=== PATIENT | female | born 1985 | race African-American/Black ===

== ENCOUNTER 2017-10-30 14:57 | Emergency (ER) | payer MEDICAID ==
[~2017-10-30] VITALS: Ht 165.1 cm; Wt 81.6 kg
[~2017-10-30 14:57] MED LIST: CANA100T PO; CHOL200029 PO; DOCU1CAP31 PO; GABA300C10 PO; GLIP10TA59 PO; HYDR12.56 PO; LEVO112T4 PO; METF-370 PO; PRAV20TA3 PO
[2017-10-30] MEDS ORDERED: IPRATROPIUM BROM 0.5 MG/2.5ML INH SOL NEB ONE (15:15)
[2017-10-30] MEDS ORDERED: ALBUTEROL SULF 2.5 MG/0.5ML(0.5%) NEB SOLN NEB ONE (15:15)
[2017-10-30 15:49] LABS: Basophils # (auto) 0 uL; Basophils % (auto) 0.2 % (0.0-2.0); Eosinophils # (auto) 0.2 uL; Eosinophils % (auto) 1.5 % (0.0-7.0); Hematocrit 38.1 % (36.0-46.0); Hemoglobin 12.4 g/dL (12.2-16.2); Lymphocytes # (auto) 0.9 uL; Lymphocytes % (auto) 7.7 % (10.0-50.0); Mean Corpuscular Hemoglobin 28.1 pg (28.0-32.0); Mean Corpuscular Hgb Conc. 32.5 g/dL (32.0-36.0); Mean Corpuscular Volume 86.4 fL (80.0-100.0); Monocytes # (auto) 0.5 uL; Monocytes % (auto) 4.1 % (0.0-12.0); Neutrophils # (auto) 9.9 uL; Neutrophils % (auto) 86.5 % (37.0-80.0); Platelet Count (auto) 329 10^3/uL (140-450); Red Blood Cells 4.41 10^6/uL (4.0-5.20); Red Cell Distribution Width 14.3 % (11.8-14.3); White Blood Cell 11.5 10^3/uL (4.4-10.8)
[2017-10-30 16:09] LABS: Alanine Aminotransferase 17 U/L (13-56); Albumin 3.8 g/dL (3.4-5.0); Alkaline Phosphatase 92 U/L (45-117); Anion Gap 6 (5-15); Aspartate Aminotransferase 10 U/L (15-37); Bilirubin, Total 0.8 mg/dL (0.2-1.0); Blood Urea Nitrogen 7 mg/dL (7-18); Calcium 8.4 mg/dL (8.5-10.1); Carbon Dioxide 25 mmol/L (21-32); Chloride 109 mmol/L (98-107); GFR African American 112 mL/min; GFR Non-African American 92 mL/min; Glucose 73 mg/dL (74-106); Magnesium 2.1 mg/dL (1.6-2.6); Potassium 4.1 mmol/L (3.5-5.1); Sodium 140 mmol/L (136-145); Total Protein 7.8 g/dL (6.4-8.2)
[2017-10-30 22:34] VITALS: BP 130/75
== END 2017-10-30 22:35 | disposition home or self-care (01) ==
LOC: ER 14:57
DX: J45.909 Unspecified asthma, uncomplicated (principal); J20.9 Acute bronchitis, unspecified; E11.9 Type 2 diabetes mellitus without complications; Z98.84 Bariatric surgery status
CPT/HCPCS: 36415; 71045; 80053; 82962; 83735; 84484; 84702; 85025; 85379; 93005; 94640

== ENCOUNTER 2024-12-23 10:21 | Inpatient (IN) | payer MEDICAID ==
[~2024-12-23] VITALS: Ht 165.1 cm; Wt 71.6 kg
[~2024-12-23 10:21] MED LIST changes: +DOCU-209 PO; -DOCU1CAP31 PO; +GABA-1250 PO; -GABA300C10 PO; -GLIP10TA59 PO; +GLIP1TAB8 PO; -HYDR12.56 PO; +HYDR12.59 PO
[2024-12-23] MEDS: ASPirin 325 MG TAB PO ONE (10:30)
--- NOTE | 2024-12-23 10:39 | ED.PDOC ---
HPI Comments 39y F who presents to the ED for chief complaint of chest pain. Pt states she has been having chest pain for the past 4 days. Pt states the pain is substernal, constant, rating the pain 9/10, radiating to the back, with a ssociated exacerbation of pain with ambulation and no relieving factors. Pt has associated shortness of breath, nausea , and vomiting but otherwise denies diaphoresis, palpitations, fever, cough, chills, dysuria, hematuria, or any associated symptoms. Pt states she has taken Tylenol but states it has not helped alleviate her pain. Pt has noted history of heart murmur and DM managed without medications but otherwise denies any other symptoms. Pt otherwise denies any other symptoms at this time. Chief Complaint: Chest Pain Time Seen by MD: 10:36 Primary Care Provider: EMEKA Mooney Notes: Medications, Allergies Allergies: Coded Allergies: Aspirin (Unverified Allergy, Intermediate, RASH, THROAT SWELLS, 12/23/24) Codeine (Unverified Allergy, Intermediate, RASH, THROAT SWELLS, 12/23/24) Home Meds Reported Medications Hydrochlorothiazide (Hydrochlorothiazide) 12.5 Mg Cap, 12.5 MG PO DAILY, CAP 02/19/14 Levothyroxine Sodium (Levothyroxine Sodium) 112 Mcg Tab, 112 MCG PO QAM for 30 Days, MCG 02/19/14 Cholecalciferol (VITAMIN D3) 2,000 Unit Chw, 2000 UNIT PO DAILY, CHW 02/19/14 Gabapentin (Gabapentin) 300 Mg Cap, 300 MG PO BID, MG 02/19/14 Docusate Sodium (Dok) 100 Mg Cap, 100 MG PO TID, CAP 02/19/14 Pravastatin Sodium (PRAVACHOL TABLET) 20 Mg Tb, 10 MG PO DAILY 02/19/14 Glipizide (Glipizide Xl) 10 Mg Tab, 10 MG PO DAILY, MG 02/19/14 Metformin Hydrochloride (Metformin Hcl) 500 Mg Tab, 1000 MG PO BID for 30 Days, MG 02/19/14 Canagliflozin (INVOKANA) 100 Mg Tab, 100 MG PO DAILY, TAB 02/19/14 Information Source: Patient Mode of Arrival: Ambulatory Past Medical History PAST MEDICAL HISTORY: DM Past Medical History (Other): heart murmur Surgical History: Cholecystectomy, Hernia Repair Surgical History (Other): gastric sleeve HAND COPER History: No Pertinent HAND COPER History Family History Family History: Unknown Social History Smoker: Non-Smoker Alcohol: Denies ETOH Use Drugs: Denies Drug Use Lives In: Home Constitutional: denies: chills, diaphoresis, fatigue, fever, malaise, sweats, weakness, others EENTM: denies: blurred vision, double vision, ear bleeding, ear discharge, ear drainage, ear pain, ear ringing, eye pain, eye redness, hearing loss, mouth pain, mouth swelling, nasal discharge, nose bleeding, nose congestion, nose pain, photophobia, tearing, throat pain, throat swelling, voice changes, others Respiratory: reports: shortness of breath; denies: cough, hemoptysis, orthopnea, SOB at rest, SOB with excertion, stridor, wheezing, others Cardiovascular: reports: chest pain; denies: dizzy spells, diaphoresis, Dyspnea on exertion, edema, irregular heart beat, left arm pain, lightheadedness, palpitations, PND, syncope, others Gastrointestinal: reports: nausea, vomiting; denies: abdomen distended, abdominal pain, blood streaked bowels, constipated, diarrhea, dysphagia, difficulty swallowing, hematemesis, melena, poor appetite, poor fluid intake, rectal bleeding, rectal pain, others Genitourinary: denies: abnormal vagina bleeding, burning, dyspareunia, dysuria, flank pain, frequency, hematuria, incontinence, pain, , vagina discharge, urgency, others Neurological: denies: dizziness, fainting, headache, left sided numbness, left sided weakness, numbness, paresthesia, pre-existing deficit, right sided n umbness, right sided weakness, seizure, speech problems, tingling, tremors, weakness, others Musculoskeletal: denies: back pain, gout, joint pain, joint swelling, muscle pain, muscle stiffness, neck pain, others Integumetry: denies: bruises, change in color, change in hair/nails, dryness, laceration, lesions, lumps, rash, wounds, others Allergic/Immunocompromised: denies: Difficulty Healing, Frequent Infections, Hives, Itching, others Hematologic/Lymphatic: denies: anemia, blood clots, easy bleeding, easy bruising, swollen glands, others Endocrine: denies: excessive hunger, excessive sweating, excessive thirst, excessive urination, flushing, intolerance to cold, intolerance to heat, unexplained weight gain, unexplained weight loss, others Psychiatric: denies: anxiety, bipolar disorder, depression, hopeless, panic disorder, schizophrenia, sleepless, suicidal, others All Other Systems: Reviewed and Negative Physical Exam General Appearance: Moderate Distress HEENT: Normal ENT Inspection, Pharynx Normal, TMs Normal Neck: Full Range of Motion, Non-Tender, Normal, Normal Inspection Respiratory: Chest Non-Tender, Lungs Clear, No Accessory Muscle Use, No Respiratory Distress, Normal Breath Sounds Cardiovascular: No Edema, No JVD, No Murmur, No Gallop, Normal Peripheral Pulses, Regular Rate/Rhythm Breast Exam: Deferred Gastrointestinal: No Organomegaly, Non Tender, No Pulsatile Mass, Normal Bowel Sounds, Soft Genitalia: Deferred Pelvic: Deferred Rectal: Deferred Extremities: No calf tenderness, Normal capillary refill, Normal inspection, Normal range of motion, Non-tender, No pedal edema Musculoskeletal : Apperance: Normal Neurologic: Alert, No Motor Deficits, No Sensory Deficits Cerebellar Function: NOT DONE Reflexes: NOT DONE Skin: Dry, Normal Color, Warm Peripheral Pulses: 3+ Radial (R), 3+ Radial (L) Lymphatic: No Adenopathy Was a procedure done? Was a procedure done?: No CP Differential Dx Differential Diagnosis: A-fib, A-Flutter, Angina, Anxiety / Panic Attack, Atrial Dysrhythmia, Electrolyte Disorder, Pulmonary Embolus, PVC's Other Differential Diagnosis PNA, viral syndrome, Differential Diagnosis: Chest Wall Pain, Costochondritis X-Ray, Labs, Meds, VS Vital Signs Date Time Temp Pulse Resp B/P (MAP) Pulse Ox O2 Delivery O2 Flow Rate FiO2 12/23/24 11:20 109 22 122/53 12/23/24 10:57 98.6 109 18 122/53 (76) 97 98.6 12/23/24 10:57 109 18 97 Room Air* 0 21 12/23/24 10:38 98.7 83 19 116/83 (94) 100 98.7 12/23/24 10:27 111 Lab Test 12/23/24 11:54 12/23/24 10:30 Range/Units Troponin I High Sensitivity Pending < 3 L </=34 ng/L White Blood Count 5.8 4.4-10.8 10^3/uL Red Blood Count 4.38 4.0-5.20 10^6/uL Hemoglobin 12.9 12.2-16.2 g/dL Hematocrit 38.0 36.0-46.0 % Mean Corpuscular Volume 86.7 80.0-100.0 fL Mean Corpuscular Hemoglobin 29.4 28.0-32.0 pg Mean Corpuscular Hemoglobin Concent 33.9 32.0-36.0 g/dL Red Cell Distribution Width 13.3 11.8-14.3 % Platelet Count 264 140-450 10^3/uL Mean Platelet Volume 7.6 6.9-10.8 fL Neutrophils (%) (Auto) 87.3 H 37.0-80.0 % Lymphocytes (%) (Auto) 7.7 L 10.0-50.0 % Monocytes (%) (Auto) 3.5 0.0-12.0 % Eosinophils (%) (Auto) 1.0 0.0-7.0 % Basophils (%) (Auto) 0.5 0.0-2.0 % Neutrophils # (Auto) 5.0 1.6-8.6 10 ^3/uL Lymphocytes # (Auto) 0.4 0.4-5.4 10 ^3/uL Monocytes # (Auto) 0.2 0-1.3 10 ^3/uL Eosinophils # (Auto) 0.1 0-0.8 10 ^3/uL Basophils # (Auto) 0 0-0.2 10 ^3/uL Nucleated Red Blood Cells 0.1 % D-Dimer, Quantitative 0.21 0.0-0.49 mg/L FEU Urine Color Pending Urine Clarity Pending Urine pH Pending Urine Specific [place] Pending Urine Protein Pending Urine Ketones Pending Urine Blood Pending Urine Nitrite Pending Urine Bilirubin Pending Urine Urobilinogen Pending Urine Leukocyte Esterase Pending Urine RBC Pending Urine Microscopic WBC Pending Urine Squamous Epithelial Cells Pending Urine Bacteria Pending Urine Glucose Pending Sodium Level 141 136-145 mmol/L Potassium Level 3.9 3.5-5.1 mmol/L Chloride Level 108 H 98-107 mmol/L Carbon Dioxide Level 26 20-31 mmol/L Anion Gap 7 5-15 Blood Urea Nitrogen 6 L 9-23 mg/dL Creatinine 0.77 0.550-1.02 mg/dL Glomerular Filtration Rate Calc 102 >90 mL/min BUN/Creatinine Ratio 7.8 L 10.0-20.0 Serum Glucose 83 74-106 mg/dL Calcium Level 9.4 8.7-10.4 mg/dL Current Medications Medications (Trade) Dose Ordered Sig/Jaswant Route Start Time Stop Time Status Last Admin Morphine Sulfate 4 mg ONCE ONCE IV 12/23/24 11:15 12/23/24 11:16 DC 12/23/24 11:20 Ondansetron HCl (Zofran) 4 mg ONCE ONCE IV 12/23/24 11:15 12/23/24 11:16 DC 12/23/24 11:20 Sodium Chloride 1,000 ml @ 1,000 mls/hr Q1H ONCE IV 12/23/24 11:45 12/23/24 12:44 12/23/24 11:48 Patient alert. Complaining of chest pain. EKG reviewed does not show any acute changes. Vitals stable. Continues to have chest pain. Establish intravenous access. Was given fluids. Was given morphine. Was given Zofran. Possible gastritis. History of gastric bypass surgery. Explained to the patient. Continue cardiac monitoring. Time of 1ST Reevaluation: 11:05 Reevaluation 1ST: Unchanged Patient Education/Counseling: Diagnosis, Treatment Family Education/Counseling: No Family Present Additional Information -Reviewed patient's previous visit(s): - The following tests were ordered, and results were reviewed by me: trop x 3, cbc, cmp, ua, bmp, ekg x 3, d-dimer - Additional information was gathered from interviewing the following independent Historian: none - I reviewed and agreed with the following test results read by other provider: none - I discussed treatments and results with medical personnel and: patient Comprehensive systems review obtained and negative except for what is stated in the HPI. Departure 1 Departure Time of Disposition: 12:12 Impression: Primary Impression: Chest pain of unknown etiology Disposition: ADMITTED INPATIENT Admit to: Med Surg Condition: Guarded Critical Care Note Critical Care Time?: Yes (45 min-critical care time only) Critical care comment: Chest pain continue to monitor Stability Stability form required: No Heart Score Heart Score: Heart Score Response (Comments) Value History Slightly Suspicious 0 EKG Normal 0 Age <45 0 Risk Factors 1 or 2 risk factors 1 Troponin Normal limit 0 Total 1 I personally scribed for KEYLA GREEN MD ([email or web address]) on 12/23/24 at 10:39. Electronically submitted by Guanaco Marcelo ([facility] [place] KEYLA GREEN MD Dec 23, 2024 10:39
[2024-12-23 10:42] LABS: Basophils # (auto) 0 10 ^3/uL (0-0.2); Basophils % (auto) 0.5 % (0.0-2.0); Eosinophils # (auto) 0.1 10 ^3/uL (0-0.8); Hemoglobin 12.9 g/dL (12.2-16.2); Lymphocytes # (auto) 0.4 10 ^3/uL (0.4-5.4); Lymphocytes % (auto) 7.7 % (10.0-50.0); Mean Corpuscular Hemoglobin 29.4 pg (28.0-32.0); Mean Corpuscular Hgb Conc. 33.9 g/dL (32.0-36.0); Mean Corpuscular Volume 86.7 fL (80.0-100.0); Monocytes # (auto) 0.2 10 ^3/uL (0-1.3); Monocytes % (auto) 3.5 % (0.0-12.0); Neutrophils % (auto) 87.3 % (37.0-80.0); Nucleated Red Blood Cells % 0.1 %; Platelet Count (auto) 264 10^3/uL (140-450); Red Blood Cells 4.38 10^6/uL (4.0-5.20); Red Cell Distribution Width 13.3 % (11.8-14.3); White Blood Cell 5.8 10^3/uL (4.4-10.8)
[2024-12-23 10:57] VITALS: PULSE 109; RESP 18; O2SAT 97
[2024-12-23 11:00] LABS: Potassium 3.9 mmol/L (3.5-5.1); Sodium 141 mmol/L (136-145)
[2024-12-23 11:01] LABS: Anion Gap 7 (5-15); Calcium 9.4 mg/dL (8.7-10.4); Carbon Dioxide 26 mmol/L (20-31)
[2024-12-23 11:02] LABS: Chloride 108 mmol/L (98-107)
[2024-12-23 11:06] LABS: BUN/Creatinine Ratio 7.8 (10.0-20.0); Glucose 83 mg/dL (74-106)
[2024-12-23 11:09] LABS: Blood Urea Nitrogen 6 mg/dL (9-23)
[2024-12-23] MEDS: MORPHINE SULFATE 4 MG/ML SYR/VIAL IV ONE (11:20)
[2024-12-23] MEDS: ONDANSETRON HCL 4 MG/2 ML VIAL IV ONE (11:20)
[2024-12-23] MEDS: SODIUM CHLORIDE 0.9% 1,000 ML IV ONE ×2 (11:45→14:44)
[2024-12-23] MEDS: METOCLOPRAMIDE HCL 5MG/ml INJ 2ml VIAL IV ONE (14:39)
[2024-12-23] MEDS: D5W/SOD CHL 0.45% 1,000 ML IV ONE (14:44)
[2024-12-23] MEDS ORDERED: DEXTROSE (50%) 50ML SYRG IV PRN (15:00)
[2024-12-23] MEDS ORDERED: NITROGLYCERIN 0.4 MG SL TAB SL PRN (15:00)
[2024-12-23] MEDS ORDERED: ONDANSETRON HCL 4 MG/2 ML VIAL IV PRN (15:00)
[2024-12-23] MEDS ORDERED: MORPHINE SULFATE INJ 2 MG/ml SYRG IV PRN (15:00)
--- NOTE | 2024-12-23 15:05 | DVHHP2 ---
History of Present Illness Reason for Visit: Chest pain History of Present Illness Suzette Villasenor is a 39-year-old female with past medical history of heart murmur, gastric sleeve, and was diabetic prior to her weight loss. Patient states that she came into the hospital due to chest pain, nausea, vomiting, and headache for 4 days. Patient states her symptoms began about 4 days ago and have continued to worsen. She states that yesterday she became dizzy, her blood sugar was low, and she had a syncopal episode. She has not been able to keep any food or water down for the last couple of days. This morning she called her primary care provider to discuss her symptoms and was told to come to the hospital. She called her friend and had her bring her to the hospital today. Cardiovascular: Other (Heart murmur) Past Surgical History: Cholecystectomy, Hernia Repair, Other (Gastric sleez 2015, abdominoplasty 09/18/2024, right foot. ) Smoke: No ALCOHOL: none Drugs: None Lives: Alone Domestic Violence: Neg Review of Systems Constitutional: No: Fever, Chills, Sweats, Weakness, Malaise, Other Eyes: No: Pain, Vision change, Conjunctivae inflammation, Eyelid inflammation, Other, Redness ENT: No: Ear pain, Ear discharge, Nose pain, Nose discharge, Nose congestion, Mouth pain, Mouth swelling, Throat pain, Throat swelling, Other Respiratory: Shortness of breath, SOB with excertion; No: Cough, Dry, Wheezing, Hemoptysis, Pleuritic Pain, Sputum, Wheezing, Other Cardiovascular: Chest Pain; No: Palpitations, Orthopnea, Paroxysmal Noc. Dyspnea, Edema, Lt Headedness, Other Gastrointestinal: Nausea, Vomiting, Abdominal Pain; No: Diarrhea, Constipation, Melena, Hematochezia, Other Genitourinary: No Dysuria, No Frequency, No Incontinence, No Hematuria, No Retention, No Other Musculoskeletal: No: other, neck pain, shoulder pain, arm pain, back pain, hand pain, leg pain, foot pain Skin: No: Rash, Lesions, Jaundice, Bruising, Other Neurological: No: Weakness, Numbness, Incoordination, Change in speech, Confusion, Seizures, Other Allergies: Coded Allergies: Aspirin (Unverified Allergy, Intermediate, RASH, THROAT SWELLS, 12/23/24) Codeine (Unverified Allergy, Intermediate, RASH, THROAT SWELLS, 12/23/24) Medications Current Medications Medications Dose Ordered Sig/Jaswant Route Start Time Stop Time Status Last Admin Dose Admin Ondansetron HCl 4 mg Q4HP PRN IV 12/23/24 15:00 UNV Acetaminophen 650 mg Q6HP PRN PO 12/23/24 15:00 UNV Nitroglycerin 0.4 mg Q5MINP PRN SL 12/23/24 15:00 UNV Morphine Sulfate 2 mg Q30M PRN IV 12/23/24 15:00 UNV Diagnostic Test (Pha) 1 strip Q2H 12/23/24 15:00 UNV Dextrose 50 ml UD PRN IV 12/23/24 15:00 UNV Metoclopramide HCl 10 mg Q6HPRN PRN IV 12/23/24 15:00 UNV Exam Vital Signs Vital Signs Date Time Temp Pulse Resp B/P (MAP) Pulse Ox O2 Delivery O2 Flow Rate FiO2 12/23/24 12:05 100 18 119/73 12/23/24 12:05 98.5 99 98.5 12/23/24 10:57 Room Air* 0 21 General Appearance: Alert, Oriented X3, Cooperative, moderate distress HEENT: Atraumatic, PERRLA Respiratory: Clear to auscultation, Normal air movement Cardiovascular: Normal S1, Normal S2, Other (Tachycardia) Abdominal: Normal bowel sounds, Soft, Other (N/V abdominal pain) Extremities: No clubbing, No cyanosis, No edema, Normal pulses, No tenderness/swelling Skin: No rashes, No breakdown, No significant lesion Neuro: Normal gait, Normal speech, Strength at 5/5 X4 ext, Normal tone Psych/Mental Status: Mental status NL, Mood NL Labs/Xrays Labs Test 12/23/24 13:37 12/23/24 11:54 12/23/24 10:30 Range/Units POC Glucose 58 L 70-106 mg/dl Troponin I High Sensitivity < 3 L </=34 ng/L White Blood Count 5.8 4.4-10.8 10^3/uL Red Blood Count 4.38 4.0-5.20 10^6/uL Hemoglobin 12.9 12.2-16.2 g/dL Hematocrit 38.0 36.0-46.0 % Mean Corpuscular Volume 86.7 80.0-100.0 fL Mean Corpuscular Hemoglobin 29.4 28.0-32.0 pg Mean Corpuscular Hemoglobin Concent 33.9 32.0-36.0 g/dL Red Cell Distribution Width 13.3 11.8-14.3 % Platelet Count 264 140-450 10^3/uL Mean Platelet Volume 7.6 6.9-10.8 fL Neutrophils (%) (Auto) 87.3 H 37.0-80.0 % Lymphocytes (%) (Auto) 7.7 L 10.0-50.0 % Monocytes (%) (Auto) 3.5 0.0-12.0 % Eosinophils (%) (Auto) 1.0 0.0-7.0 % Basophils (%) (Auto) 0.5 0.0-2.0 % Neutrophils # (Auto) 5.0 1.6-8.6 10 ^3/uL Lymphocytes # (Auto) 0.4 0.4-5.4 10 ^3/uL Monocytes # (Auto) 0.2 0-1.3 10 ^3/uL Eosinophils # (Auto) 0.1 0-0.8 10 ^3/uL Basophils # (Auto) 0 0-0.2 10 ^3/uL Nucleated Red Blood Cells 0.1 % D-Dimer, Quantitative 0.21 0.0-0.49 mg/L FEU Sodium Level 141 136-145 mmol/L Potassium Level 3.9 3.5-5.1 mmol/L Chloride Level 108 H 98-107 mmol/L Carbon Dioxide Level 26 20-31 mmol/L Anion Gap 7 5-15 Blood Urea Nitrogen 6 L 9-23 mg/dL Creatinine 0.77 0.550-1.02 mg/dL Glomerular Filtration Rate Calc 102 >90 mL/min BUN/Creatinine Ratio 7.8 L 10.0-20.0 Serum Glucose 83 74-106 mg/dL Calcium Level 9.4 8.7-10.4 mg/dL Assessment/Plan Assessment/Plan Assessment: Hypoglycemia, Dehydration, Intractable nausea and vomiting, Shortness of breath, Plan: Admit to Tele, IV hydration, D51/2 at 100ml /hour, Accu checks Q2 hour with D5 ordered, Pain management, Plan discussed with: Patient My Orders Orders - SCHWING,LEXI R [employer]TER [employer] Procedure Category Date Status Time D5w/Sod Chl 0.45% PHA 12/23/24 In Process (D5w 1/2ns) 14:15 Sodium Chloride 0.9% PHA 12/23/24 In Process 14:15 Acetaminophen Tablet PHA 12/23/24 Logged (Tylenol Tablet) 14:30 Admit ADMIT 12/23/24 Transmitted 14:47 Code Status CODE 12/23/24 Transmitted 14:47 Ondansetron Hcl PHA 12/23/24 Logged (Zofran) 15:00 Complete Blood Count LAB 12/24/24 Verified 04:00 Comprehensive LAB 12/24/24 Verified Metabolic Panel 04:00 Condition: Serious DANDY 12/23/24 In Process 14:47 Acetaminophen Tablet PHA 12/23/24 Logged (Tylenol Tablet) 15:00 Clear Liq Diet DIET 12/23/24 Transmitted Dinner Nitroglycerin PHA 12/23/24 Logged Sublingual (Ntrostat 15:00 Morphine Sulfate PHA 12/23/24 Logged Injection 15:00 Stat Ekg For Chest DANDY 12/23/24 In Process Pain 14:47 Notify Md Of Changes DANDY 12/23/24 In Process From Base 14:47 Braille Proofreader For DANDY 12/23/24 In Process 24 Hours 14:47 Emergency Dysrhythmia [facility] 12/23/24 In Process Protocol 14:47 Rhythm Strips Once [facility] 12/23/24 In Process Every Shift 14:47 Oxygen By Nasal RT 12/23/24 Transmitted Cannula 14:47 Glucose Blood PHA 12/23/24 Logged (Accu-Chek Comfort 15:00 Dextrose 50% Syringe PHA 12/23/24 Logged 15:00 Metoclopramide PHA 12/23/24 Logged Injection (Reglan 15:00 Date of Service: Dec 23, 2024 Billing Provider: LEXI LORAP Common Visit Codes: [id number] INP/OBS CARE (MOD) LEXI LORA [employer] Dec 23, 2024 15:05
[2024-12-23 15:35] LABS: Urine Blood Negative /uL (Negative); Urine Clarity Turbid (Clear); Urine Color Yellow (Yellow); Urine Mucus FEW (None Seen); Urine Protein, UAD TRACE (Negative); Urine Specific Gravity 1.023 (1.001-1.035); Urine Squamous Epithelial Cell MANY /hpf (<5); Urine Urobilinogen 4 mg/dL (Negative); Urine WBC 3 /HPF (0-5); Urine pH 6.5 (5.0-9.0)
[2024-12-23 15:47] LABS: Urine Bacteria NONE SEEN /hpf (None Seen)
[2024-12-23] MEDS: ACCU-CHEK COMFORT CURVE STRIP VI SCH (16:00)
[2024-12-23] MEDS: ACETAMINOPHEN 325 MG TAB PO ONE (16:01)
[2024-12-23 19:45] VITALS: RESP 19; O2SAT 98
[2024-12-23] MEDS: METOCLOPRAMIDE HCL 5MG/ml INJ 2ml VIAL IV PRN (19:45)
[2024-12-24] VITALS (9 sets, daily range): BP systolic 97–112; BP diastolic 58–82; PULSE 60–93; RESP 15–18; TEMP 97.5–98.4; O2SAT 95–99
[2024-12-24 05:44] LABS: Basophils # (auto) 0 10 ^3/uL (0-0.2); Basophils % (auto) 0.5 % (0.0-2.0); Eosinophils # (auto) 0.1 10 ^3/uL (0-0.8); Eosinophils % (auto) 2.8 % (0.0-7.0); Hematocrit 33.6 % (36.0-46.0); Hemoglobin 11.1 g/dL (12.2-16.2); Lymphocytes % (auto) 29.2 % (10.0-50.0); Mean Corpuscular Hemoglobin 28.5 pg (28.0-32.0); Mean Corpuscular Volume 86.4 fL (80.0-100.0); Monocytes # (auto) 0.6 10 ^3/uL (0-1.3); Monocytes % (auto) 16.3 % (0.0-12.0); Neutrophils # (auto) 1.8 10 ^3/uL (1.6-8.6); Neutrophils % (auto) 51.2 % (37.0-80.0); Nucleated Red Blood Cells % 0.2 %; Platelet Count (auto) 232 10^3/uL (140-450); Red Blood Cells 3.89 10^6/uL (4.0-5.20); Red Cell Distribution Width 13.5 % (11.8-14.3); White Blood Cell 3.5 10^3/uL (4.4-10.8)
[2024-12-24 06:04] LABS: Albumin 3.3 g/dL (3.2-4.8); Anion Gap 6 (5-15); Carbon Dioxide 26 mmol/L (20-31); Glucose 82 mg/dL (74-106); Potassium 3.6 mmol/L (3.5-5.1); Sodium 141 mmol/L (136-145)
[2024-12-24 06:07] LABS: Alanine Aminotransferase 202 U/L (7-40); Alkaline Phosphatase 212 U/L (46-116); Aspartate Aminotransferase 129 U/L (13-40); BUN/Creatinine Ratio 7.1 (10.0-20.0); Blood Urea Nitrogen < 5 mg/dL (9-23); Calcium 8.5 mg/dL (8.7-10.4); Chloride 109 mmol/L (98-107); Total Protein 5.5 g/dL (5.7-8.2)
--- NOTE | 2024-12-24 07:30 | ECG ---
[facility] Test Date: 2024-12-23 Test Time: 10:27:42 Pat Name: FERNANDO DE Department: ER Room: [address] [place] [address] 8 Gender: F [facility] Director: CORONA : 1985 Requested By: KEYLA GREEN Order Number: [id number] Reading MD: Elian Matos Measurements Intervals [place] Rate: 111 P: 76 LA: 179 QRS: 50 QRSD: 67 T: -83 QT: 325 QTc: 442 Interpretive Statements Sinus tachycardia Nonspecific T abnormalities, diffuse leads Baseline wander in lead(s) V1 Electronically Signed On 12-26-2024 17:21:19 PDT by Elian Matos Please click the below link to view image of tracing.
--- NOTE | 2024-12-24 12:45 | DVHPN2 ---
Subjective The patient is seen and examined at bedside. Still nausea. Reviewed: Care Plan, H&P, Labs, Medications, Previous Orders, Radiology Changes from previous H/P or p: No Changes Eyes: No Pain, No Vision change, No Conjunctivae inflammation, No Eyelid inflammation, No Other, No Redness ENT: No Ear pain, No Ear discharge, No Nose pain, No Nose discharge, No Nose congestion, No Mouth pain, No Mouth swelling, No Throat pain, No Throat swelling, No Other Cardiovascular: Chest Pain; No Palpitations, No Orthopnea, No Paroxysmal Noc. Dyspnea, No Edema, No Lt Headedness, No Other Respiratory: No Cough, No Dry; Shortness of breath, SOB with excertion; No Wheezing, No Hemoptysis, No Pleuritic Pain, No Sputum, No Other Gastrointestinal: Nausea, Vomiting, Abdominal Pain; No Diarrhea, No Constipation, No Melena, No Hematochezia, No Other Genitourinary: No Dysuria, No Frequency, No Incontinence, No Hematuria, No Retention, No Other Musculoskeletal: No other, No neck pain, No shoulder pain, No arm pain, No back pain, No hand pain, No leg pain, No foot pain Skin: No Rash, No Lesions, No Jaundice, No Bruising, No Other Objective Vitals Vital Signs Date Time Temp Pulse Resp B/P (MAP) Pulse Ox O2 Delivery O2 Flow Rate FiO2 12/24/24 08:00 Room Air* 0 21 12/24/24 08:00 64 12/24/24 05:00 97.6 18 109/60 (76) 98 97.6 Intake/Output Intake and Output 12/24/24 07:00 Intake Total 0 ml Balance 0 ml Intake Oral 0 ml General Appearance: Alert, Oriented X3, Cooperative, No acute distress HEENT: Atraumatic, PERRLA, EOMI, Mucous membr. moist/pink Neck: Supple Lungs: Clear to auscultation, Normal air movement Cardiovascular: Regular rate, Normal S1, Normal S2, No murmurs, Gallops, Rubs Abdomen: Normal bowel sounds, Soft, No tenderness Extremities: No edema Neuro: Cranial nerves 3-12 NL Psych/Mental Status: Mental status NL Medications Current Medications Medications Dose Ordered Sig/Jaswant Route Start Time Stop Time Status Last Admin Dose Admin Ondansetron HCl 4 mg Q4HP PRN IV 12/23/24 15:00 Acetaminophen 650 mg Q6HP PRN PO 12/23/24 15:00 Nitroglycerin 0.4 mg Q5MINP PRN SL 12/23/24 15:00 Morphine Sulfate 2 mg Q30M PRN IV 12/23/24 15:00 Diagnostic Test (Pha) 1 strip Q2H 12/23/24 15:00 12/24/24 05:00 1 STRIP Dextrose 50 ml UD PRN IV 12/23/24 15:00 Metoclopramide HCl 10 mg Q6HPRN PRN IV 12/23/24 15:00 12/23/24 19:45 10 MG Laboratory Results Laboratory Tests 12/24/24 05:23 Chemistry Test 12/24/24 05:23 Albumin 3.3 g/dL (3.2-4.8) Calcium Level 8.5 mg/dL (8.7-10.4) L Total Protein 5.5 g/dL (5.7-8.2) L LFT Test 12/24/24 05:23 Alanine Aminotransferase (ALT) 202 U/L (7-40) H Alkaline Phosphatase 212 U/L (46-116) H Aspartate Amino Transferase (AST) 129 U/L (13-40) H Total Bilirubin 1.0 mg/dL (0.2-1.0) Urinalysis Test 12/23/24 10:44 Urine Color Yellow (Yellow) Urine Clarity Turbid (Clear) H Urine pH 6.5 (5.0-9.0) Urine Specific [place] 1.023 (1.001-1.035) Urine Protein Trace (Negative) H Urine Ketones 3+ (Negative) H Urine Blood Negative /uL (Negative) Urine Nitrite Negative (Negative) Urine Bilirubin Negative (Negative) Urine Urobilinogen 4 mg/dL (Negative) H Urine Leukocyte Esterase Negative /uL (Negative) Urine RBC 1 /hpf (0 - 4) Urine Microscopic WBC 3 /HPF (0-5) Urine Squamous Epithelial Cells Many /hpf (<5) Urine Bacteria None seen /hpf (None Seen) Urine Mucus Few (None Seen) Urine Glucose Normal mg/dL (Normal) Labs and/or images reviewed: Labs reviewed by me Assessment/Plan Assessment/Plan Hypoglycemia, Dehydration, Intractable nausea and vomiting, Shortness of breath, Continuing current management. Continuing to monitor her hypoglycemia so far the patient is improved. Encouraged the patient to eat. Her chest pain probably due to retching of vomiting at home. Her troponin level 2 set has been checked out and was negative. Continuing IV fluid This medical document was created using an electronic medical record system with [employer]er direct computerized dictation system. Although this document has been carefully reviewed, there may still be some phonetic and typographical errors. These areas are purely typographical due to imperfections of the software programs, and do not reflect any compromise in the patient's medical care. Plan discussed with: Patient Date of Service: Dec 24, 2024 Billing Provider: ANNA PAREKH MD Common Visit Codes: [id number] INP/OBS CARE(HIGH) ANNA PAREKH MD Dec 24, 2024 12:45
[2024-12-24] MEDS ORDERED: DEXTROSE (50%) 50ML SYRG IV PRN (13:00)
[2024-12-24] MEDS ORDERED: CIPROFLOXACIN 0.3%OPTH(EYE) SOL 5ML LEFT EAR SCH (14:00)
[2024-12-24] MEDS: InsuLIN REG 1unit/0.01ml Soln (100units/ml) SC SCH (16:45)
[2024-12-24] MEDS: ACCU-CHEK COMFORT CURVE STRIP VI SCH (16:45)
[2024-12-24] MEDS: CIPROFLOXACIN 0.3%OPTH(EYE) SOL 5ML LEFT EAR SCH (17:30)
[2024-12-24] MEDS: ACETAMINOPHEN 325 MG TAB PO PRN (21:12)
[2024-12-25 01:00] VITALS: BP 113/68; PULSE 67; RESP 18; TEMP 97.8; O2SAT 99
[2024-12-25 08:41] VITALS: BP 103/61; PULSE 67; RESP 16; TEMP 97.6; O2SAT 98
--- NOTE | 2024-12-25 12:49 | DVHDS2 ---
Discharge Summary Date of Admission Dec 23, 2024 at 14:47 Date of Discharge: Dec 25, 2024 Admitting Diagnosis Hypoglycemia, Dehydration, Intractable nausea and vomiting, Shortness of breath, Labs/Diagnostic Data: Laboratory Results Test 12/25/24 05:47 12/24/24 05:23 12/23/24 11:54 12/23/24 10:44 POC Glucose 73 mg/dl (70-106) White Blood Count 3.5 10^3/uL (4.4-10.8) Red Blood Count 3.89 10^6/uL (4.0-5.20) Hemoglobin 11.1 g/dL (12.2-16.2) Hematocrit 33.6 % (36.0-46.0) Mean Corpuscular Volume 86.4 fL (80.0-100.0) Mean Corpuscular Hemoglobin 28.5 pg (28.0-32.0) Mean Corpuscular Hemoglobin Concent 33.0 g/dL (32.0-36.0) Red Cell Distribution Width 13.5 % (11.8-14.3) Platelet Count 232 10^3/uL (140-450) Mean Platelet Volume 7.9 fL (6.9-10.8) Neutrophils (%) (Auto) 51.2 % (37.0-80.0) Lymphocytes (%) (Auto) 29.2 % (10.0-50.0) Monocytes (%) (Auto) 16.3 % (0.0-12.0) Eosinophils (%) (Auto) 2.8 % (0.0-7.0) Basophils (%) (Auto) 0.5 % (0.0-2.0) Neutrophils # (Auto) 1.8 10 ^3/uL (1.6-8.6) Lymphocytes # (Auto) 1.0 10 ^3/uL (0.4-5.4) Monocytes # (Auto) 0.6 10 ^3/uL (0-1.3) Eosinophils # (Auto) 0.1 10 ^3/uL (0-0.8) Basophils # (Auto) 0 10 ^3/uL (0-0.2) Nucleated Red Blood Cells 0.2 % Sodium Level 141 mmol/L (136-145) Potassium Level 3.6 mmol/L (3.5-5.1) Chloride Level 109 mmol/L (98-107) Carbon Dioxide Level 26 mmol/L (20-31) Anion Gap 6 (5-15) Blood Urea Nitrogen < 5 mg/dL (9-23) Creatinine 0.70 mg/dL (0.550-1.02) Glomerular Filtration Rate Calc 114 mL/min (>90) BUN/Creatinine Ratio 7.1 (10.0-20.0) Serum Glucose 82 mg/dL (74-106) Calcium Level 8.5 mg/dL (8.7-10.4) Total Bilirubin 1.0 mg/dL (0.2-1.0) Aspartate Amino Transferase (AST) 129 U/L (13-40) Alanine Aminotransferase (ALT) 202 U/L (7-40) Alkaline Phosphatase 212 U/L (46-116) Total Protein 5.5 g/dL (5.7-8.2) Albumin 3.3 g/dL (3.2-4.8) Troponin I High Sensitivity < 3 ng/L (</=34) Urine Color Yellow (Yellow) Urine Clarity Turbid (Clear) Urine pH 6.5 (5.0-9.0) Urine Specific [place] 1.023 (1.001-1.035) Urine Protein Trace (Negative) Urine Ketones 3+ (Negative) Urine Blood Negative /uL (Negative) Urine Nitrite Negative (Negative) Urine Bilirubin Negative (Negative) Urine Urobilinogen 4 mg/dL (Negative) Urine Leukocyte Esterase Negative /uL (Negative) Urine RBC 1 /hpf (0 - 4) Urine Microscopic WBC 3 /HPF (0-5) Urine Squamous Epithelial Cells Many /hpf (<5) Urine Bacteria None seen /hpf (None Seen) Urine Mucus Few (None Seen) Urine Glucose Normal mg/dL (Normal) Test 12/23/24 10:30 D-Dimer, Quantitative 0.21 mg/L FEU (0.0-0.49) Other Laboratory Tests 12/24/24 05:23 Brief Hx & Hospital Course: This is a 39 years old female with past medical history heart murmur, gastric stent, diabetes came to emergency department because of intractable nausea and vomiting in headache for four days. She said she can not keep anything down except water. She had a syncopal episode. She come to hospital for further evaluation. The patient was given IV fluid. The patient is still complain of nausea and vomiting. Her liver function tests and alk-phos is elevated. I order an ultrasound of abdomen. However the patient grew inpatient and decided to leave against medical advice. Patient verbally understands without further workup she continuing to have nausea and vomiting in february end up in the hospital again she is still choose to leave against medical advice. Physical exam prior to patient leaving against medical advice show: HEENT: Normocephalic atraumatic pupils equal react to light and accommodation. Extraocular muscles intact, conjunctiva pink, oropharynx moist, no thrush, no exudate. Lymphatic: No lymphadenopathy Cardiovascular exam: S1, S2 was heard. No murmurs, rubs, gallops Lung: Clear on auscultation bilaterally, no wheeze, rale, rhonchi. GI: Abdominal soft, nondistended, nontenderness, positive bowel sounds. Extremity: No crepitus, cyanosis, edema. Pedal pulses present bilateral. Full range of motion. Skin: Normal turgor, no rash. Psych: Alert, oriented x3. Neurology: No focal deficits, cranial nerve II to XII grossly intact. This medical document was created using an electronic medical record system with [employer] direct computerized dictation system. Although this document has been carefully reviewed, there may still be some phonetic and typographical errors. These areas are purely typographical due to imperfections of the software programs, and do not reflect any compromise in the patient's medical care. Condition at Discharge: Guarded Final Diagnosis/Problems List Elevation of liver function test. Hypoglycemia, Dehydration, Intractable nausea and vomiting, Shortness of breath, Discharge Disposition: AMA Discharge Statement: "Patient was advised to return to the ER or call 911 if any headaches, dizziness, shortness of breath, chest pain, abdominal pain, bleeding, fevers, or worsening of medical condition. Patient was counseled about treatment plan, medications, possible side effects, patientverbalized understanding. All questions were answered to the best of my ability. This discharge took greater then 30 minutes in planning, reviewing documentation, counseling the patient, and discussing with other team members." ASSESSMENT ASSESSMENT Assessment Date of Service: Dec 25, 2024 Billing Provider: ANNA PAREKH MD Common Visit Codes: 95025-CPZ/OBS DISCH DAY >30min ANNA PAREKH MD Dec 25, 2024 12:49
== END 2024-12-25 10:00 | disposition left against medical advice (07) | DRG 420 ==
LOC: ER 10:21 → OVERFLOW 14:47 → TELE-EAST 23:29
PROVIDERS: ADMIT Internal Medicine; ATTEND Internal Medicine
DX: E11.649 Type 2 diabetes mellitus with hypoglycemia without coma (principal); E86.0 Dehydration; Z53.29 Procedure and treatment not carried out because of patient's decision for other reasons; Z60.2 Problems related to living alone; Z79.899 Other long term (current) drug therapy; Z79.84 Long term (current) use of oral hypoglycemic drugs; Z88.6 Allergy status to analgesic agent; Z88.5 Allergy status to narcotic agent; Z90.49 Acquired absence of other specified parts of digestive tract; Z98.84 Bariatric surgery status
CPT/HCPCS: 36415; 80048; 80053; 81001; 82962; 84484; 85025; 85379; 93005; 99291; G0378; J2405